=== PATIENT | female | born 1955 | race Caucasian/White ===

== ENCOUNTER 2018-12-27 13:42 | Observation (INO) | payer OTHER ==
[~2018-12-27] VITALS: Ht 152.4 cm; Wt 91.8 kg
[2018-12-27] MEDS ORDERED: LIPITOR20 MG PO (13:57)
[2018-12-27] MEDS ORDERED: SYNTHROID 0.10.15 MG PO (13:57)
[2018-12-27 14:35] LABS: HEMATOCRIT 37.3 % (37.0-47.0); HEMOGLOBIN 12.3 g/dl (12.5-16.0); MEAN CELL VOLUME 91 fl (80.0-100.0); MEAN CORPUSCULAR HEMOGLOBIN 30 pg (27.0-31.0); MEAN CORPUSCULAR HGB CONC 33 g/dl (33.0-37.0); MEAN PLATELET VOLUME 11.4 fl (7.4-10.4); PLATELET COUNT 208 K/mm3 (130-400); RED BLOOD COUNT 4.12 M/mm3 (4.10-5.30); REDCELL DISTRIBUTION WIDTH-CV 13.8 % (11.5-14.5)
[2018-12-27 14:58] LABS: TROPONIN-I < 0.012 ng/mL (0.000-0.035)
[2018-12-27 15:08] LABS: ALANINE AMINOTRANSFERASE 35 U/L (9-52); ALBUMIN 3.3 gm/dL (3.5-5.0); ALKALINE PHOSPHATASE 101 U/L (50-136); ANION GAP 12 mmol/L (7-16); AST,SGOT 50 U/L (15-37); BILIRUBIN,TOTAL 0.5 mg/dL (0.0-1.0); BLOOD UREA NITROGEN 24 mg/dL (7-17); CALCIUM 8.1 mg/dL (8.4-10.2); CARBON DIOXIDE 24 mmol/L (22-30); CHLORIDE 98 mmol/L (98-107); CREATININE, serum 0.72 (0.52-1.25); GLUCOSE 216 mg/dL (74-106); POTASSIUM 4.1 mmol/L (3.4-5.0); SODIUM 134 mmol/L (137-145); TOTAL PROTEIN 6.6 gm/dL (6.4-8.2)
[2018-12-27 16:13] LABS: BAND 15 % (0-10); LYMPHOCYTE 7 % (20.0-51.0); NEUTROPHILS 76 % (42.0-75.2)
[2018-12-27 16:15] LABS: PLATELET ESTIMATE NORMAL (NORMAL)
[2018-12-27 17:04] LABS: COLLECTION METHOD CLEAN CATCH
[2018-12-27 17:29] LABS: PH 5 (5-8); SQUAMOUS EPITHELIAL 0-2 /hpf; URINE APPEARANCE Clear; URINE BACTERIA None Seen /hpf; URINE BILIRUBIN Negative (NEGATIVE); URINE BLOOD Negative (NEGATIVE); URINE COLOR Yellow; URINE GLUCOSE Negative (NEGATIVE); URINE KETONE 2+ (NEGATIVE); URINE LEUKOCYTE ESTERASE Negative (NEGATIVE); URINE NITRATE Negative (NEGATIVE); URINE PROTEIN(semi-quant) Negative (NEGATIVE); URINE UROBILINOGEN Negative (NEGATIVE)
[2018-12-27 18:08] VITALS: BP 101/44; PULSE 68; TEMP 98.8
[2018-12-27 19:22] VITALS: BP 108/51; PULSE 70; TEMP 98.3
--- NOTE | 2018-12-27 19:40 | NUR ---
`Pt up to floor from ED this afternoon, initial assessments complete, has some unproductive cough, left Pt call light in reach, bed in lowest position, questions answered.
--- NOTE | 2018-12-27 20:30 | NUR ---
Initial shift assessment done- states overall feeling better- o2 at 2L/nc, Up in chair , states back pain 10/23 - requesting tylenol, IV of NS at 125cc/hr, Tele on, droplet Isol pending RSV panel
[2018-12-27 23:20] VITALS: BP 109/56; PULSE 71; TEMP 97.6
--- NOTE | 2018-12-28 05:45 | NUR ---
Quiet night- states did not sleep much- getting tylenol for back pain,,states will take a walk soon to help out her back-denies any SOB
[2018-12-28 06:47] VITALS: BP 106/61; PULSE 66; TEMP 97.8
[2018-12-28 08:06] LABS: HEMOGLOBIN 10.8 g/dl (12.5-16.0); MEAN CELL VOLUME 90 fl (80.0-100.0); MEAN CORPUSCULAR HEMOGLOBIN 30 pg (27.0-31.0); MEAN CORPUSCULAR HGB CONC 33 g/dl (33.0-37.0); MEAN PLATELET VOLUME 11.2 fl (7.4-10.4); PLATELET COUNT 181 K/mm3 (130-400); RED BLOOD COUNT 3.59 M/mm3 (4.10-5.30); REDCELL DISTRIBUTION WIDTH-CV 13.7 % (11.5-14.5)
[2018-12-28 08:18] LABS: BILIRUBIN,TOTAL 0.2 mg/dL (0.0-1.0); CALCIUM 7.9 mg/dL (8.4-10.2); CREATININE, serum 0.53 (0.52-1.25); POTASSIUM 3.5 mmol/L (3.4-5.0); TOTAL PROTEIN 6.7 gm/dL (6.4-8.2)
[2018-12-28 08:23] LABS: HEMATOCRIT 32.4 % (37.0-47.0)
--- NOTE | 2018-12-28 09:05 | NUR ---
GILDA met with the patient to discuss a discharge plan. The pt lives with family in [place]. The pt does not use DME and reports independence with ADLs. The pt's PCP is Dr. Carl Connor. The pt receives her medications from [facility] in and report no difficulties obtaining her them. The pt does not have advanced directives in the EMR and was not interested in obtaining a DPOA-HC form. The pt plans to return home upon discharge. There are no additional needs at this time.
[2018-12-28 09:36] LABS: BAND 10 % (0-10); LYMPHOCYTE 7 % (20.0-51.0); NEUTROPHILS 81 % (42.0-75.2); PLATELET ESTIMATE NORMAL (NORMAL)
[2018-12-28 12:30] VITALS: BP 116/63; PULSE 71; TEMP 99.1
--- NOTE | 2018-12-28 13:59 | NUR ---
Director Diversity offered prayer and support with patient while family was in room.
[2018-12-28 14:41] VITALS: BP 110/58; PULSE 89; TEMP 99.4
--- NOTE | 2018-12-28 18:05 | NUR ---
Patient is sitting up in recliner eating supper. Feet are elevated. PRN APAP and robitussin provided as requested. Denies having any pain. is at bedside. No further needs verbalized. Call light and personal items are within reach.
[2018-12-28 20:19] VITALS: BP 110/49; PULSE 81; TEMP 98.3
--- NOTE | 2018-12-28 20:30 | NUR ---
Initial shift assessment done- requesting a sleeping pill tonight-- will call Nevin YOU for orders, patient up in chair, watching a movie--was just given some Tylenol for back pain by previous shift. IV fluids at 60cc/hr.
--- NOTE | 2018-12-28 22:00 | NUR ---
Tylenol given for back pain 11/22, Robitussin given as requested for cough also ambien given at this time
[2018-12-29 00:08] VITALS: BP 120/66; PULSE 78; TEMP 98.5
[2018-12-29 03:09] VITALS: BP 116/62; PULSE 78; TEMP 99.2
[2018-12-29 05:00] VITALS: BP 116/62; PULSE 78; TEMP 99.2
--- NOTE | 2018-12-29 06:00 | NUR ---
Getting Tylenol/Robitussin every 4 hours during the night- states slept about 3-4hrs- - hoping to go home today
[2018-12-29 06:55] LABS: HEMOGLOBIN 10.9 g/dl (12.5-16.0); MEAN CELL VOLUME 89 fl (80.0-100.0); MEAN CORPUSCULAR HEMOGLOBIN 30 pg (27.0-31.0); MEAN CORPUSCULAR HGB CONC 34 g/dl (33.0-37.0); MEAN PLATELET VOLUME 11.2 fl (7.4-10.4); PLATELET COUNT 231 K/mm3 (130-400); REDCELL DISTRIBUTION WIDTH-CV 13.8 % (11.5-14.5)
[2018-12-29 06:57] LABS: CALCIUM 7.6 mg/dL (8.4-10.2); CREATININE, serum 0.5 (0.52-1.25); HEMATOCRIT 32.1 % (37.0-47.0); POTASSIUM 3.8 mmol/L (3.4-5.0)
[2018-12-29 07:33] LABS: BAND 8 % (0-10); EOSINOPHIL 1 % (0-4); LYMPHOCYTE 13 % (20.0-51.0); NEUTROPHILS 74 % (42.0-75.2); PLATELET ESTIMATE NORMAL (NORMAL)
[2018-12-29] MEDS ORDERED: GLUCOPHAGE500 MG/TAB PO (10:43)
[2018-12-29] MEDS ORDERED: LEVAQUIN 750MG750 M1 PO (10:53)
--- NOTE | 2018-12-29 11:42 | NUR ---
PT EDUCATION AND DISCHARGE PAPER WORK WENT OVER WITH PATIENT. IV REMOVED. PT EATING LUNCH AND WAITING FOR TO TAKE HER HOME. PT STATED SHE WILL LET US KNOW WHEN SHE IS READY TO GO HOME.
[2018-12-29 12:02] VITALS: BP 114/63; PULSE 82; TEMP 98.4
--- NOTE | 2018-12-29 13:10 | NUR ---
PT ESCORTED OUT OF FACILITY BY THIS NURSE.
== END 2018-12-29 13:00 | disposition home or self-care (01) ==
LOC: COL.ER 13:42 → MEDICAL 14:45
PROVIDERS: Emergency Medicine; Hospitalist; Physician Assistant; ADMIT Family Medicine
DX: J18.1 Lobar pneumonia, unspecified organism (principal); E87.1 Hypo-osmolality and hyponatremia; E03.9 Hypothyroidism, unspecified; E78.5 Hyperlipidemia, unspecified; I49.5 Sick sinus syndrome; E11.9 Type 2 diabetes mellitus without complications; R74.0 Nonspecific elevation of levels of transaminase and lactic acid dehydrogenase [LDH]; R79.89 Other specified abnormal findings of blood chemistry; Z79.84 Long term (current) use of oral hypoglycemic drugs
CPT/HCPCS: 99231-AI; G0378; J1650; J1815; J1956; J2930; J7030